=== PATIENT | female | born 1950 | race Caucasian/White ===

== ENCOUNTER 2020-03-01 11:29 | Outpatient (CLI) | payer MEDICARE, OTHER ==
--- NOTE | 2020-03-01 12:00 | RAD ---
XR Abdomen 2 View HISTORY: Abdominal pain COMPARISON: None. FINDINGS: The bowel gas pattern is unremarkable. There is fecal material in the colon. No suspicious calcificat ions are seen. There are pelvic phleboliths. Degenerative changes seen in the spine. IMPRESSION: Constipation.
== END 2020-03-01 11:30 | disposition home or self-care (01) ==
LOC: BICRAD 11:29
PROVIDERS: ATTEND Family Medicine
DX: R10.9 Unspecified abdominal pain (principal); K59.00 Constipation, unspecified
CPT/HCPCS: 36415; 74019; 80053; 82150; 83690; 85025

== ENCOUNTER 2020-12-27 10:25 | Outpatient (CLI) | payer MEDICARE, OTHER | END 2020-12-27 10:26 | disposition home or self-care (01) | LOC: BICRAD 10:25 | PROVIDERS: ATTEND Neurological Surgery | DX: M51.26 Other intervertebral disc displacement, lumbar region (principal); M47.816 Spondylosis without myelopathy or radiculopathy, lumbar region | CPT/HCPCS: 72110 ==

== ENCOUNTER 2021-03-14 13:20 | Outpatient (CLI) | payer MEDICARE, OTHER | END 2021-03-14 13:21 | disposition home or self-care (01) | LOC: BICCT 13:20 | PROVIDERS: ATTEND Internal Medicine Gastroenterology | DX: K58.9 Irritable bowel syndrome, unspecified (principal); K21.9 Gastro-esophageal reflux disease without esophagitis; R10.9 Unspecified abdominal pain; R11.10 Vomiting, unspecified; K57.30 Diverticulosis of large intestine without perforation or abscess without bleeding | CPT/HCPCS: 74177; 82565 ==